=== PATIENT | female | born 2000 | race Caucasian/White ===

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

== ENCOUNTER 2019-01-01 18:08 | Emergency (ER) | payer BC, OTHER ==
[2019-01-01 18:16] VITALS: BP 119/75
--- NOTE | 2019-01-01 18:58 | UC ---
Skin Complaint HPI - HPI Summary HPI Summary: 18 yo female with expanding bulls eye rash right inner thigh x 3 days works outside in [employer] no tick bite noted - History of Current Complaint Chief Complaint: UCSkin Time Seen by Provider: 01/01/19 18:27 Stated Complaint: TICK BITE Hx Obtained From: Patient Hx Last Menstrual Period: 02/08/14 Onset/Duration: Gradual Onset, Lasting Days Timing: Constant Onset Severity: Mild Current Severity: Mild Pain Intensity: 2 Pain Scale Used: 0-10 Numeric Location: Discrete Character: Pain - mild if touched, Redness Aggravating Factor(s): Nothing Alleviating Factor(s): Nothing Associated Signs & Symptoms: Positive: Rash - Allergy/Home Medications Allergies/Adverse Reactions: Allergies Allergy/AdvReac Type Severity Reaction Status Date / Time No Known Allergies Allergy Unverified 01/01/19 18:16 PMH/Surg Hx/FS Hx/Imm Hx Previously Healthy: Yes - Surgical History Surgical History: Yes Surgery Procedure, Year, and Place: CHIARI DECOMPRESSION SURGERY 12/15/16 - Social History Alcohol Use: None Substance Use Type: None Smoking Status (MU): Never Smoked Tobacco - Immunization History Vaccination Up to Date: Yes Review of Systems All Other Systems Reviewed And Are Negative: Yes Constitutional: Positive: Negative Skin: Positive: Rash Eyes: Positive: Negative ENT: Positive: Negative Respiratory: Positive: Negative Cardiovascular: Positive: Negative Gastrointestinal: Positive: Negative Genitourinary: Positive: Negative Motor: Positive: Negative Neurovascular: Positive: Negative Musculoskeletal: Positive: Negative Neurological: Positive: Negative Psychological: Positive: Negative Physical Exam Triage Information Reviewed: Yes Appearance: Well-Appearing, No Pain Distress, Well-Nourished Vital Signs: Initial Vital Signs Temp 98.6 F 01/01/19 18:11 Pulse 91 01/01/19 18:11 Resp 18 01/01/19 18:11 BP 119/75 01/01/19 18:11 Pulse Ox 100 01/01/19 18:11 Vital Signs Reviewed: Yes Eyes: Positive: Conjunctiva Clear ENT: Positive: Hearing grossly normal. Negative: Nasal congestion, Nasal drainage, Trismus, Muffled voice Neck: Positive: Supple, Nontender Respiratory: Positive: Lungs clear, Normal breath sounds, No respiratory distress, No accessory muscle use Cardiovascular: Positive: RRR, No Murmur Musculoskeletal: Positive: ROM Intact, No Edema Neurological: Positive: Alert Psychological Exam: Normal Skin Exam: Other - right inner thigh 6x 8 cm bullseye lesion c/w EM Course/Dx - Diagnoses Provider Diagnosis: Erythema migrans (Lyme disease) Discharge - Sign-Out/Discharge Documenting (check all that apply): Patient Departure All imaging exams completed and their final reports reviewed: No Studies - Discharge Plan Condition: Stable Disposition: HOME Prescriptions: Amoxicillin PO (*) [Amoxicillin 500 MG CAP*] 500 mg PO TID #42 cap Patient Education Materials: Lyme Disease (ED) Referrals: Bertha Villagomez MD [Primary Care Provider] - 2 Weeks Additional Instructions: your rash is concerning for erthyema migrans a rash associated with early lyme disease Take the amoxicillin 3x day for 2 weeks - Billing Disposition and Condition Condition: STABLE Disposition: Home
== END 2019-01-01 19:00 | disposition home or self-care (01) ==
LOC: UCEAST 18:08
DX: A69.20 Lyme disease, unspecified (principal)
CPT/HCPCS: 99212; G0463